=== PATIENT | female | born 1970 | race Caucasian/White ===

== ENCOUNTER 2018-09-20 12:22 | Observation (INO) ==
--- NOTE | 2018-09-20 15:24 | ED ---
HPI General Chief Complaint: Headache Stated Complaint: Headache Time Seen by Provider: 09/20/18 15:01 History of Present Illness HPI Narrative: The patient was seen and examined in the presence of the nurse. This patient complains of yesterday at 10 AM developing a headache. It was a bilateral frontal throbbing headache. It lasted 30 minutes and resolved spontaneously. It did not reoccur. At the same time that she got her headache she developed some weakness of her right arm and right leg. She says that lasted several hours but resolved. It did not recur after that. At this time she feels completely fine but decided to come and get it checked out. She has history of frequent migraines but when she started having menopausal symptoms about 3-4 months ago her migraines stopped. No fever or head injury. At this time symptom severity is mild. No alleviating factors. No exacerbating factors. Related Data Home Medications Medication Instructions Recorded Confirmed metoprolol tartrate 50 mg PO BID 09/20/18 09/20/18 omeprazole 10 mg PO DAILY 09/20/18 09/20/18 prednisone 15 mg PO DAILY 09/20/18 09/20/18 Allergies Allergy/AdvReac Type Severity Reaction Status Date / Time No Known Allergies Allergy Severe Uncoded 03/27/16 15:33 N Allergy Unknown Uncoded 05/13/03 02:23 NKDA Allergy Unknown Uncoded 05/13/03 02:23 Review of Systems ROS: all other systems reviewed are negative [facility] Social History Social History Smoking Status: Never smoker How Often Do You Have a Drink Containing Alcohol: Never Recent Travel in [facility] within the Last 8 Weeks: No Recent Out of Country Travel within the Last 8 Weeks: No Immunization History Tetanus Immunization: Unsure Exam Narrative Exam Narrative: GENERAL: Well-nourished, well-developed patient in no apparent distress. SKIN: Focused skin assessment reveals no rash and nodules. Skin is Warm and dry. HEAD: Atraumatic. Normocephalic. EYES: Pupils equal and round. No scleral icterus. No injection or drainage. ENT: No nasal bleeding or discharge. Mucous membranes pink and moist. NECK: Trachea midline. No JVD. No meningeal signs CARDIOVASCULAR: Regular rate and rhythm. No murmur appreciated. RESPIRATORY: No accessory muscle use. Clear to auscultation. Breath sounds equal bilaterally. GASTROINTESTINAL: Abdomen soft, non-tender, nondistended. Hepatic and splenic margins not palpable. MUSCULOSKELETAL: No obvious deformities. No clubbing. No cyanosis. No edema. NEUROLOGICAL: Awake and alert. No obvious cranial nerve deficits. Motor grossly within normal limits. Normal speech. PSYCHIATRIC: Appropriate mood and affect; insight and judgment normal. Course Initial Documented Vital Signs Temperature 98.9 F 09/20/18 12:36 Pulse Rate 111 H 09/20/18 12:36 Respiratory Rate 20 09/20/18 12:36 Blood Pressure 127/81 09/20/18 12:36 Pulse Oximetry 95 09/20/18 12:36 Last Documented Vital Signs Temperature 98.9 F 09/20/18 12:36 Pulse Rate 99 H 09/20/18 18:01 Respiratory Rate 20 09/20/18 18:01 Blood Pressure 149/89 H 09/20/18 18:01 Pulse Oximetry 98 09/20/18 18:01 Medical Decision Making MDM Narrative Medical decision making narrative: 48-year-old female who yesterday had headache with some right-sided weakness. Both symptoms have resolved and she feels fine today. My initial thought was a typical migraine but I also do not want to miss TIA. I placed a call to our neurologist to discuss and then will initiate a workup plan. Neurologic exam at this time is normal. She has no headache. Takes no blood thinners. No history of stroke or TIA. Has never had neurologic symptoms with her headache. Case reviewed with Dr. Frederick. Brain CT shows potential for old stroke change. Nothing acute. Patient has some nonspecific leukocytosis. Metabolic studies look normal. Neurology recommends 23-hour observation on telemetry for possible TIA. Discussed with hospitalist who will do this. Medical Screen Exam Complete: Yes Emergency Medical Condition: Yes Lab Data Lab results reviewed: Yes I reviewed the patient's lab results. Lab results narrative: Has nonspecific leukocytosis and normal metabolic studies Result diagrams: 09/20/18 15:47 09/20/18 15:47 Lab Results 09/20/18 09/20/18 09/20/18 Range/Units 15:47 15:47 15:47 WBC 15.0 H (4.0-11.0) th/mm3 RBC 4.73 (4.00-5.30) mil/mm3 Hgb 14.5 (11.6-15.3) gm/dL Hct 42.0 (35.0-46.0) % MCV 88.8 (80.0-100.0) fL MCH 30.5 (27.0-34.0) pg MCHC 34.4 (32.0-36.0) % RDW 13.5 (11.6-17.2) % Plt Count 369 (150-450) th/mm3 MPV 7.3 (7.0-11.0) fL Neut % (Auto) 56.5 (16.0-70.0) % Lymph % (Auto) 32.9 (9.0-44.0) % [place] % (Auto) 7.7 (0.0-8.0) % Eos % (Auto) 2.2 (0.0-4.0) % Baso % (Auto) 0.7 (0.0-2.0) % Neut # (Auto) 8.5 H (1.8-7.7) th/mm3 Lymph # (Auto) 4.9 H (1.0-4.8) th/mm3 [place] # (Auto) 1.2 H (0.0-0.9) th/mm3 Eos # (Auto) 0.3 (0.0-0.4) th/mm3 Baso # (Auto) 0.1 (0.0-0.2) th/mm3 WBC Differential . 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 No acute infarct, acute hemorrhage, midline shift or extra-axial fluid collection. 2. 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 . ECG Data EKG Prior to Arrival: No Attestation: I personally reviewed and interpreted this ECG as follows: Prior ECG tracings: not available for review Interpretation: EKG shows sinus rhythm at 96. VT interval is 175 [place] is. [place] is normal. No ectopy or ST elevation. Discharge Plan Discharge Disposition Patient Disposition: ED Admit(ED Internal Use Only) Discharge Details Diagnosis: Brain TIA Physicians Team ED Provider: Martin Antoine Primary Care Provider: UNKNOWN, Rxs /Orders / Referrals /Forms Prescriptions: No Action omeprazole 10 mg Capsule,Delayed Release(Dr/Ec) 10 mg PO DAILY RF: 0 metoprolol tartrate 50 mg Tablet 50 mg PO BID RF: 0 prednisone 15 mg PO DAILY RF: 0 Discharge Interventions Interventions: Vital Signs Last Done: 09/20/18 18:01 Status ED Status: With Doctor
[2018-09-20 15:58] LABS: Baso # (Auto) 0.1 th/mm3 (0.0-0.2); Baso % (Auto) 0.7 % (0.0-2.0); Eos # (Auto) 0.3 th/mm3 (0.0-0.4); Eos % (Auto) 2.2 % (0.0-4.0); Hemoglobin 14.5 gm/dL (11.6-15.3); Lymph # (Auto) 4.9 th/mm3 (1.0-4.8); Lymph % (Auto) 32.9 % (9.0-44.0); Mean Corpuscular HGB Conc 34.4 % (32.0-36.0); Mean Corpuscular Hemoglobin 30.5 pg (27.0-34.0); Mean Corpuscular Volume 88.8 fL (80.0-100.0); Mean Platelet Volume 7.3 fL (7.0-11.0); Mono # (Auto) 1.2 th/mm3 (0.0-0.9); Mono % (Auto) 7.7 % (0.0-8.0); Neut # (Auto) 8.5 th/mm3 (1.8-7.7); Neut % (Auto) 56.5 % (16.0-70.0); Platelet Count 369 th/mm3 (150-450); Red Blood Count 4.73 mil/mm3 (4.00-5.30); Red Cell Distribution Width 13.5 % (11.6-17.2)
--- NOTE | 2018-09-20 16:00 | CT ---
EXAM DATE: 09/20/2018 3:55 PM EST AGE/SEX: 48 years / Female INDICATIONS: Severe headache and ear pain, right sided weakness CLINICAL DATA: This is the patient's initial encounter. Patient reports that signs and symptoms have been present for 1 day and indicates a pain score of 5/10. MEDICAL/SURGICAL HISTORY: Hypertension. None. RADIATION DOSE: 49.25 CTDI (mGy) COMPARISON: No prior exams available for comparison. TECHNIQUE: CT of the head without contrast. Using automated exposure control and adjustment of the mA and/or kV according to patient size, radiation dose was kept as low as reasonably achievable to ob tain optimal diagnostic quality images. DICOM format image data is available electronically for revi ew and comparison. FINDINGS: Cerebrum: The ventricles are normal for age. No evidence of midline shift, mass lesion, hemorrhage or acute infarction. No extraaxial fluid collections are seen. Posterior Fossa: Old infarct is noted involving the left cerebellar hemisphere. The brainstem is inta ct. The 4th ventricle is midline. The cerebellopontine angle is unremarkable. Extracranial: The visualized portion of the orbits is intact. Skull: The calvaria is intact. No evidence of skull fracture. CONCLUSION: 1. No acute infarct, acute hemorrhage, midline shift or extra-axial fluid collection. 2. 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 . Electronically signed by: Clyde Rodriguez MD Board Certified Radiologist 09/20/2018 3:59 PM EST
[2018-09-20 16:04] LABS: Activated Partial Thrombo Time 23.8 sec (23.4-31.7); INR 0.9 Ratio; Prothrombin Time 9.4 sec (9.8-11.6)
[2018-09-20 16:39] LABS: Calcium 8.6 mg/dL (8.5-10.1); Carbon Dioxide 28.8 meq/L (21.0-32.0)
[2018-09-20 16:46] LABS: Potassium 3.9 meq/L (3.5-5.1)
[2018-09-20] MEDS ORDERED: Acetaminophen 325 MG Tablet PO PRN (18:19)
[2018-09-20] MEDS ORDERED: Bisacodyl 10 MG Supp RECTAL PRN (18:19)
--- NOTE | 2018-09-20 18:39 | P.HPIM ---
History of Present Illness Primary Care Physician: UNKNOWN History of Present Illness: 48 yo F with h/o HTN,Asthma, obesity,unexplained tachycardia and migraine who presented to the ER for evaluation of right sided weakness that occurred yesterday but has since resolved. She feels back to her baseline presently. Patient reports that she was doing some cleaning when she developed a suddenly developed a throbbing frontal headache and ear pains which lasted about 30 minutes then resolved. Soon after the headache resolved patient developed right sided weakness and slurred speech which persisted for about six hours then gradually improved. She had no visual symptoms. She feels she is now back to her baseline, but feels she is forgetting things. Patient denies any other symptoms at this time. ROS is negative except as stated above. On presentation to ER, VSS mild tachycardia, mildly hypertensive, other vitals stable. labs unremarkable except for leucocytosis of 15(says she was monitored for possible leukemia in the past but was given a clean bill.)CT head without evidence of acute infarction but there is ab old infarct in the lt cerebellar hemisphere. She received ASA 324mg. Patient is being admitted for observation for possible TIA. Review of Systems Review of Systems: all other systems reviewed are negative [facility] Medical History Medical History Asthma (Acute) HTN (hypertension) (Acute) Migraine (Acute) Tachycardia (Acute) Social History Social History Substance History: No History of Abuse Second Hand Smoke Exposure: No Smoking Status: Former smoker How Often Do You Have a Drink Containing Alcohol: Never Immunization History Tetanus Immunization: Unsure Medications and Allergies Allergies Allergy/AdvReac Type Severity Reaction Status Date / Time No Known Allergies Allergy Severe Uncoded 03/27/16 15:33 N Allergy Unknown Uncoded 05/13/03 02:23 NKDA Allergy Unknown Uncoded 05/13/03 02:23 Home Medications Medication Instructions Recorded Confirmed Type omeprazole 10 mg PO DAILY 09/20/18 09/20/18 History prednisone 15 mg PO DAILY 09/20/18 09/20/18 History Active Medications: Active Medications Acetaminophen (Tylenol) 650 mg PO Q4H PRN PRN Reason: Temp > 100.4 Al Hydroxide/Mg Hydroxide (Milk Of Magnesia Liq) 30 ml PO Q12H PRN PRN Reason: Mild Constipation Bisacodyl (Dulcolax Supp) 10 mg RECTAL DAILY PRN PRN Reason: SEVERE CONSITIPATION Lactulose (Lactulose Liq) 30 ml PO DAILY PRN PRN Reason: SEVERE CONSITIPATION Ondansetron HCl (Zofran Inj) 4 mg IV.PUSH Q6H PRN PRN Reason: NAUSEA OR VOMITING Senna/Docusate Sodium (Nadege-Colace) 1 tab PO BID JIN Sennosides (Senokot) 17.2 mg PO Q12H PRN PRN Reason: Moderate Constipation Sodium Chloride (Ns Flush) 2 ml IV.FLUSH BID JIN Sodium Chloride (Ns Flush) 2 ml IV.FLUSH PRN PRN PRN Reason: FLUSH AFTER USING IV ACCESS Physical Exam Vital signs: Vital Signs 09/20/18 12:36 09/20/18 12:42 09/20/18 18:01 Temperature 98.9 F Pulse Rate 111 H 102 H 99 H Respiratory Rate 20 19 20 Blood Pressure 127/81 165/98 H 149/89 H Pulse Oximetry 95 98 98 Intake & Output 09/19/18 09/20/18 09/20/18 18:59 06:59 18:59 Weight 99.79 kg Narrative: GENERAL: obese middle aged woman in no acute distress. HEENT:not pale,anicteric,ALEJANDRO,no nystagmus CARDIOVASCULAR: Regular rate and rhythm without murmurs, gallops, or rubs. RESPIRATORY: Clear to auscultation. Breath sounds equal bilaterally. No wheezes , rales, or rhonchi. GASTROINTESTINAL: Abdomen soft, non-tender, nondistended. Normal active bowel sounds MUSCULOSKELETAL: Extremities without clubbing, cyanosis, or edema. NEURO: Alert & Oriented x4 to person, place, time, situation. Cranial nerves II -XII intact, muscle strength 5/5, no disdiadokinesia. Gait normal. Results Labs CBC & Chem 7: 09/20/18 15:47 09/20/18 15:[address] 09/20/18 15:30 CONCLUSION: 1. No acute infarct, acute hemorrhage, midline shift or extra-axial fluid collection. 2. 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 . Caprini VTE Risk Assessment Caprini VTE Risk Assessment: No/Low Risk (score <= 1) Caprini Risk Assessment Model: Point Value = 1 Point Value = 2 Point Value = 3 Point Value = 5 Age 41-60 Minor surgery BMI > 25 kg/m2 Swollen legs Varicose veins or History of unexplained or recurrent spontaneous Oral contraceptives or hormone replacement Sepsis (< 1 month) Serious lung disease, including pneumonia (< 1 month) Abnormal pulmonary function Acute myocardial infarction Congestive heart failure (< 1 month) History of inflammatory bowel disease Medical patient at bed rest Age 61-74 Arthroscopic surgery Major open surgery (> 45 min) Laparoscopic surgery (> 45 min) Malignancy Confined to bed (> 72 hours) Immobilizing plaster cast Central venous access Age >= 75 History of VTE Family history of VTE Factor V Leiden Prothrombin [id number] Lupus anticoagulant Anticardiolipin antibodies Elevated serum homocysteine Heparin-induced thrombocytopenia Other congenital or acquired thrombophilia Stroke (< 1 month) Elective arthroplasty Hip, pelvis, or leg fracture Acute spinal cord injury (< 1 month) Prophylaxis Regimen: Total Risk Factor Score Risk Level Prophylaxis Regimen 0-1 Low Early ambulation 2 Moderate Order ONE of the following: *Sequential Compression Device (SCD) *Heparin 5000 units SQ BID 3-4 Higher Order ONE of the following medications: *Heparin 5000 units SQ TID *Enoxaparin/Lovenox 40 mg SQ daily (WT < 150 kg, CrCl > 30 mL/min) *Enoxaparin/Lovenox 30 mg SQ daily (WT < 150 kg, CrCl > 10-29 mL/min) *Enoxaparin/Lovenox 30 mg SQ BID (WT < 150 kg, CrCl > 30 mL/min) AND/OR *Sequential Compression Device (SCD) 5 or more Highest Order ONE of the following medications: *Heparin 5000 units SQ TID (Preferred with Epidurals) *Enoxaparin/Lovenox 40 mg SQ daily (WT < 150 kg, CrCl > 30 mL/min) *Enoxaparin/Lovenox 30 mg SQ daily (WT < 150 kg, CrCl > 10-29 mL/min) *Enoxaparin/Lovenox 30 mg SQ BID (WT < 150 kg, CrCl > 30 mL/min) AND *Sequential Compression Device (SCD) Assessment and Plan Plan 48 yo F with h/o HTN,Asthma, obesity,unexplained tachycardia and migraine who presented to the ER for evaluation of right sided weakness that occurred yesterday but has since resolved. Resolved right sided weakness and slurred speech-- differentials include TIA vs hemiplegic migraine. Patient has risk factors for stroke. keep on telemetry, check lipid profile,A1C,ECHO. MRI/MRA brain Start on daily Aspirin 81mg HTN--BP mildly elevated, monitor for now. Tachycardia-continue usual dose of Metoprolol Asthma-not in exacerbation. continue usual Prednisone and Albuterol inhaler.
--- NOTE | 2018-09-20 21:20 | US ---
EXAM DATE: 09/20/2018 9:13 PM EST AGE/SEX: 48 years / Female INDICATIONS: Syncope and head pain. CLINICAL DATA: This is the patient's initial encounter. Patient reports that signs and symptoms have been present for 1 day and indicates a pain score of 6/10. MEDICAL/SURGICAL HISTORY: Hypertension. Migraine. Tachycardia. None. COMPARISON: No prior exams available for comparison. VELOCITY PARAMETERS: ICA/CCA Ratio: Right 0.7 , Left 1.0 ICA: Right 61 cm/sec, Left 67 cm/sec CCA: Right 90 cm/sec, Left 66 cm/sec ECA: Right 81 cm/sec, Left 86 cm/sec Vertebral: Right 34 cm/sec antegrade, Left 26 cm/sec antegrade FINDINGS: Right Carotid: No significant plaque is visualized.The waveforms are within normal limits. Left Carotid: No significant plaque is visualized. The waveforms are within normal limits. Other: None. CONCLUSION: 1. Right Internal Carotid Artery: No significant stenosis or atherosclerotic plaque is visualized. 2. Left Internal Carotid Artery: No significant stenosis or atherosclerotic plaque is visualized. Electronically signed by: William Krishnan MD Board Certified Radiologist 09/20/2018 9:19 PM EST
--- NOTE | 2018-09-20 21:42 | MR ---
EXAM DATE: 09/20/2018 9:38 PM EST AGE/SEX: 48 years / Female INDICATIONS: CVA. Headache yesterday with weakness today. CLINICAL DATA: This is the patient's initial encounter. Patient reports that signs and symptoms have been present for 2 days and indicates a pain score of 6/10. MEDICAL/SURGICAL HISTORY: Hypertension. section. Knee sx. COMPARISON: [facility] [place], MR HEAD W/O CONTRAST, 09/20/2018. . TECHNIQUE: 3D [id number] MRA was performed. Source images, multiplanar STS MIP, and 3D volum e MIP reconstructions were reviewed. FINDINGS: There is excellent visualization of the major intracranial arteries out to the second-order branch ve ssels. There is no evidence for aneurysm, vessel truncation or stenosis, and no evidence for vascula r malformation. CONCLUSION: 1. Negative MRA [place] ([place] [facility] [place]) non contrast. Electronically signed by: William Krishnan MD Board Certified Radiologist 09/20/2018 9:41 PM EST
--- NOTE | 2018-09-20 21:43 | MR ---
EXAM DATE: 09/20/2018 9:38 PM EST AGE/SEX: 48 years / Female INDICATIONS: CVA. Headache and weakness yesterday. CLINICAL DATA: This is the patient's initial encounter. Patient reports that signs and symptoms have been present for 2 days and indicates a pain score of 6/10. MEDICAL/SURGICAL HISTORY: Hypertension. section. Knee sx. COMPARISON: [facility], MRA HEAD W/O CONTRAST, 09/20/2018. . TECHNIQUE: Multiplanar, multisequence examination of the brain was performed without contrast. FINDINGS: There are remote left cerebellar infarcts identified. There are no signs of acute infarction on diffu lizbet-weighted images. CSF spaces, ventricles and cisterns are of normal size and configuration. No he morrhage or mass. CONCLUSION: 1. Remote left cerebellar infarcts. Electronically signed by: William Krishnan MD Board Certified Radiologist 09/20/2018 9:42 PM EST
[2018-09-20] MEDS: Senna/Docusate Sodium 8.6/50 MG Tablet PO SCH (21:52)
[2018-09-20] MEDS: Metoprolol Tartrate 50 MG Tablet PO SCH (21:52)
[2018-09-20 22:38] LABS: Hemoglobin A1c 6.2 % (4.3-6.0)
[2018-09-21 07:58] LABS: Chol/HDL Ratio 2.92 Ratio; HDL Cholesterol 75.8 mg/dL (40.0-60.0)
[2018-09-21] MEDS: Pantoprazole Sodium 20 MG DR Tablet PO SCH (08:41)
[2018-09-21] MEDS: predniSONE 5 MG Tablet PO SCH (08:41)
[2018-09-21] MEDS: Metoprolol Tartrate 50 MG Tablet PO SCH ×2 (08:42→21:22)
[2018-09-21] MEDS: Senna/Docusate Sodium 8.6/50 MG Tablet PO SCH ×2 (08:42→21:23)
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
[2018-09-21] MEDS: Butalbital/APAP/Caff 50/325/40 MG Tablet PO PRN (10:56)
[2018-09-21] MEDS: Lisinopril 5 MG Tablet PO SCH (10:57)
--- NOTE | 2018-09-21 12:38 | P.CONCA ---
History of Present Illness Service: Cardiology Consult date: 09/21/18 Requesting Physician: Jayesh Frederick Reason for Consult: SE Primary Care Provider: UNKNOWN Chief Complaint: Headache weakness History of Present Illness: This is a very pleasant 48-year-old female with past medical history of hypertension, asthma, obesity, unexplained tachycardia and migraines. On September 19, 2018 she developed right-sided weakness and decided to seek further evaluation in the emergency department. During the episode of right-sided weakness, she denied any chest pain, pressure, palpitations, dizziness or edema. She did complain of ongoing shortness of breath related to her asthma. Upon evaluation today, all symptoms have resolved and she denies any chest pain , pressure, palpitations, dizziness, edema or shortness of breath. Review of Systems All other systems reviewed negative except as stated in HPI PMF - History History Provided By: Patient - Medical History Medical History: Medical History (Last Updated 09/20/18 @ 18:33 by Anam Roca MD) Asthma HTN (hypertension) Migraine Tachycardia - Family History Family History: Family History (Last Reviewed 09/20/18 @ 15:22 by Martin Antoine MD) Grandparent Stroke Heart disease Father Heart disease - Tobacco History Second Hand Smoke Exposure: No Tobacco Use In Past 30 Days: No Smoking Status: Former smoker - Alcohol History How Often Do You Have a Drink Containing Alcohol: Never - Substance Use History Substance History: No History of Abuse - Travel History Recent Travel in the [place] Within the Last 8 Weeks: No Recent Travel Out of the Country Within the Last 8 Weeks: No - Immunization History Tetanus Immunization: Unsure Medications and Allergies Allergies Allergy/AdvReac Type Severity Reaction Status Date / Time No Known Allergies Allergy Severe Uncoded 03/27/16 15:33 N Allergy Unknown Uncoded 05/13/03 02:23 NKDA Allergy Unknown Uncoded 05/13/03 02:23 Home Medications Medication Instructions Recorded Confirmed Type metoprolol tartrate 50 mg PO BID 09/20/18 09/20/18 History omeprazole 10 mg PO DAILY 09/20/18 09/20/18 History prednisone 15 mg PO DAILY 09/20/18 09/20/18 History Active Medications: Active Medications Acetaminophen (Tylenol) 650 mg PO Q4H PRN PRN Reason: Temp > 100.4 Acetaminophen/Butalbital/Caffeine (Fioricet 50-325-40) 1 tab PO Q8H PRN PRN Reason: HEADACHE Last Admin: 09/21/18 10:56 Dose: 1 tab Al Hydroxide/Mg Hydroxide (Milk Of Magnesia Liq) 30 ml PO Q12H PRN PRN Reason: Mild Constipation Aspirin (Ecotrin) 81 mg PO DAILY [facility] Last Admin: 09/21/18 08:41 Dose: 81 mg Bisacodyl (Dulcolax Supp) 10 mg RECTAL DAILY PRN PRN Reason: SEVERE CONSITIPATION Lactulose (Lactulose Liq) 30 ml PO DAILY PRN PRN Reason: SEVERE CONSITIPATION Lisinopril (Prinivil) 5 mg PO DAILY [facility] Last Admin: 09/21/18 10:57 Dose: 5 mg Metoprolol Tartrate (Lopressor) 50 mg PO BID [facility] Last Admin: 09/21/18 08:42 Dose: 50 mg Ondansetron HCl (Zofran Inj) 4 mg IV.PUSH Q6H PRN PRN Reason: NAUSEA OR VOMITING Pantoprazole Sodium (Protonix) 20 mg PO DAILY [facility] Last Admin: 09/21/18 08:41 Dose: 20 mg Prednisone (Deltasone) 15 mg PO DAILY [facility] Last Admin: 09/21/18 08:41 Dose: 15 mg Senna/Docusate Sodium (Nadege-Colace) 1 tab PO BID [facility] Last Admin: 09/21/18 08:42 Dose: Not Given Sennosides (Senokot) 17.2 mg PO Q12H PRN PRN Reason: Moderate Constipation Sodium Chloride (Ns Flush) 2 ml IV.FLUSH BID [facility] Last Admin: 09/21/18 08:41 Dose: 2 ml Sodium Chloride (Ns Flush) 2 ml IV.FLUSH PRN PRN PRN Reason: FLUSH AFTER USING IV ACCESS Exam Vital signs: Vital Signs 09/20/18 12:36 09/20/18 12:42 09/20/18 18:01 Temperature 98.9 F Pulse Rate 111 H 102 H 99 H Respiratory Rate 20 19 20 Blood Pressure 127/81 165/98 H 149/89 H Pulse Oximetry 95 98 98 09/20/18 19:46 09/20/18 20:00 09/20/18 23:40 Temperature 97.8 F 97.8 F Pulse Rate 92 H 86 79 Respiratory Rate 16 20 18 Blood Pressure 160/79 H 110/61 113/61 Pulse Oximetry 96 93 L 96 09/21/18 02:00 09/21/18 03:27 09/21/18 08:00 Temperature 97.6 F 97.4 F L Pulse Rate 73 79 88 Respiratory Rate 18 18 Blood Pressure 110/63 132/79 Pulse Oximetry 93 L 92 L 09/21/18 11:43 Temperature 96.6 F L Pulse Rate 75 Respiratory Rate 18 Blood Pressure 126/86 Pulse Oximetry 95 Intake & Output 09/20/18 09/21/18 09/21/18 18:59 06:59 18:59 Weight 99.79 kg Other: Date of Last Bowel Movement 09/20/18 09/21/18 - Constitutional no acute distress - Routine HEENT Exam Head: Present: normocephalic Eye: Present: PERRL ENT: Present: mucous membranes moist - Routine Neck Exam Present: full ROM - Routine Respiratory Exam Present: CTA bilaterally - Routine Cardiovascular Exam Present: S1, S2. Absent: murmur, gallop, rubs - Routine Abdominal Exam Present: normoactive bowel sounds - Routine Extremities Exam Present: full ROM, pulses intact, normal capillary refill. Absent: cyanosis, clubbing, edema - Routine Skin Exam Present: intact - Routine Neurological Exam Present: oriented X3 Results 09/20/18 15:47 09/20/18 15:47 Coagulation 09/20/18 Range/Units 15:47 PT 9.4 L (9.8-11.6) sec APTT 23.8 (23.4-31.7) sec Lipids 09/21/18 Range/Units 07:21 Triglycerides 91 (42-150) mg/dL Cholesterol 222 H (120-200) mg/dL HDL Cholesterol 75.8 H (40.0-60.0) mg/dL Cholesterol/HDL Ratio 2.92 Ratio CBC 09/20/18 Range/Units 15:47 WBC 15.0 H (4.0-11.0) th/mm3 RBC 4.73 (4.00-5.30) mil/mm3 Hgb 14.5 (11.6-15.3) gm/dL Hct 42.0 (35.0-46.0) % Plt Count 369 (150-450) th/mm3 Neut # (Auto) 8.5 H (1.8-7.7) th/mm3 Lymph # (Auto) 4.9 H (1.0-4.8) th/mm3 [place] # (Auto) 1.2 H (0.0-0.9) th/mm3 Eos # (Auto) 0.3 (0.0-0.4) th/mm3 Baso # (Auto) 0.1 (0.0-0.2) th/mm3 Comprehensive Metabolic Panel 09/20/18 Range/Units 15:47 Sodium 142 (136-145) meq/L Potassium 3.9 (3.5-5.1) meq/L Chloride 105 (98-107) meq/L Carbon Dioxide 28.8 (21.0-32.0) meq/L BUN 19 H (7-18) mg/dL Creatinine 0.99 (0.50-1.00) mg/dL Calcium 8.6 (8.5-10.1) mg/dL Intake and Output 09/20/18 09/21/18 09/21/18 22:59 06:59 14:59 Other: Date of Last Bowel Movement 09/20/18 09/21/18 - Imaging and Cardiology Imaging: Impressions Carotid Doppler Study 09/20/18 00:00 CONCLUSION: 1. Right Internal Carotid Artery: No significant stenosis or atherosclerotic plaque is visualized. 2. Left Internal Carotid Artery: No significant stenosis or atherosclerotic plaque is visualized. Head MRI 09/20/18 00:00 CONCLUSION: 1. Remote left cerebellar infarcts. Head MRA 09/20/18 00:00 CONCLUSION: 1. Negative MRA Cow ([place]) non contrast. Head CT 09/20/18 15:30 CONCLUSION: 1. No acute infarct, acute hemorrhage, midline shift or extra-axial fluid collection. 2. 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 . Assessment and Plan - Assessment (1) Brain TIA Code(s): G45.9 - Transient cerebral ischemic attack, unspecified Status: Acute (2) Migraine Code(s): G43.909 - Migraine, unspecified, not intractable, without status migrainosus Status: Acute (3) Obesity Code(s): E66.9 - Obesity, unspecified Status: Acute (4) Asthma Code(s): J45.909 - Unspecified asthma, uncomplicated Status: Acute (5) Hypertension Code(s): I10 - Essential (primary) hypertension Status: Acute (6) Hyperlipidemia Code(s): E78.5 - Hyperlipidemia, unspecified Status: Acute - Plan EKG shows no acute coronary syndrome at this time. We will proceed with transesophageal echocardiogram this evening to evaluate for cardiac source of emboli and PFO. Keep patient n.p.o. except medications. Have consent signed for transesophageal echocardiogram, placed on chart. We will continue to monitor patient during hospitalization. The patient was seen and evaluated by Dr. Reis who participated in care, management and decision making. - Attending Attestation Patient seen and examined. I reviewed and agree with the evaluation and plan as presented. Neurology evaluation in progress. Proceed with SE today.
--- NOTE | 2018-09-21 14:36 | ECG ---
Date Performed: 09/20/2018 Time Performed: 16:17:04 PTAGE: 48 years EKG: Sinus rhythm NORMAL ECG NO PREVIOUS TRACING DOCTOR: Dante Erickson Interpretating Date/Time 09/21/2018 14:34:32
[2018-09-21] MEDS ORDERED: Metoprolol Tartrate 25 MG Tablet PO SCH (14:55)
[2018-09-21] MEDS ORDERED: Chlorhexidine Gluconate 2% 1 Pack (2 Cloths) TOPICAL ONE (14:55)
[2018-09-21] MEDS ORDERED: Sodium Chlor 0.9% Inj 500 ML IV.SIG SCH (15:00)
[2018-09-21] MEDS ORDERED: Famotidine PF Inj 20 MG/2 ML Vial ONE (16:12)
[2018-09-21] MEDS ORDERED: Lidocaine PF 1% Inj 5 ML Syringe OTHER ONE (17:30)
[2018-09-21] MEDS ORDERED: Glycopyrrolate Inj 1 MG/5 ML Syringe IV.PUSH ONE (17:30)
[2018-09-21] MEDS ORDERED: Succinylcholine Inj 100 MG/5 ML Syringe IV.PUSH ONE (17:30)
--- NOTE | 2018-09-21 17:47 | ECHRPT ---
Indication: CVA/TIA CONCLUSIONS Normal left ventricular size. The left ventricular systolic function is normal with an estimated ejection fraction in the range of 60-65%. Wall thickness is normal. There is trace tricuspid valve regurgitation. The estimated pulmonary arterial pressure is 32 mmHg. BP: / HR: Rhythm: MEASUREMENTS (Male / Female) Normal Values Technical Quality:Fair 2D ECHO LV Diastolic Diameter PLAX 4.2 cm 4.2 - 5.9 / 3.9 - 5.3 cm LV Systolic Diameter PLAX 2.8 cm IVS Diastolic Thickness 0.9 cm 0.6 - 1.0 / 0.6 - 0.9 cm LVPW Diastolic Thickness 0.9 cm 0.6 - 1.0 / 0.6 - 0.9 cm LV Relative Wall Thickness 0.4 RV Internal Dim ED PLAX 2.8 cm LVOT Diameter 2.1 cm Aortic Root Diameter 2.7 cm LA Systolic Diameter LX 2.5 cm 3.0 - 4.0 / 2.7 - 3.8 cm M-MODE AV Cusp Separation MM 1.9 cm DOPPLER AV Peak Velocity 124.0 cm/s AV Peak Gradient 6.2 mmHg LVOT Peak Velocity 85.4 cm/s LVOT Peak Gradient 2.9 mmHg AV Area Cont Eq pk 2.4 cm Mitral E Point Velocity 93.7 cm/s Mitral A Point Velocity 85.5 cm/s Mitral E to A Ratio 1.1 LV E' Lateral Velocity 7.7 cm/s Mitral E to LV E' Lateral Ratio 12.2 LV E' Septal Velocity 9.7 cm/s Mitral E to LV E' Septal Ratio 9.7 TR Peak Velocity 235.0 cm/s TR Peak Gradient 22.1 mmHg Right Atrial Pressure 10.0 mmHg Pulmonary Artery Systolic Pressu 32.1 mmHg Right Ventricular Systolic Press 32.1 mmHg PV Peak Velocity 113.0 cm/s PV Peak Gradient 5.1 mmHg FINDINGS LEFT VENTRICLE Normal left ventricular size. Wall thickness is normal. The left ventricular systolic function is normal with an estimated ejection fraction in the range of 60-65%. RIGHT VENTRICLE Normal right ventricular size and systolic function. LEFT ATRIUM The left atrial size is normal. RIGHT ATRIUM The right atrial size is normal. ATRIAL SEPTUM Normal atrial septal thickness without atrial level shunting by limited color doppler interrogation. AORTA The aortic root and proximal ascending aorta are normal in size on limited imaging. MITRAL VALVE Structurally normal mitral valve. No mitral valve stenosis or regurgitation. AORTIC VALVE Trileaflet aortic valve. No aortic valve stenosis or regurgitation. TRICUSPID VALVE There is trace tricuspid valve regurgitation. The estimated pulmonary arterial pressure is 32 mmHg. PULMONARY VALVE Trivial pulmonary valve regurgitation. VESSELS The inferior vena cava is normal in size. PERICARDIUM No pericardial effusion. Brian Reis MD, FACC (Electronically Signed) Final Date:21 September 2018 17:46
[2018-09-21] MEDS ORDERED: *morphine SULFATE 4 MG/ML PERIprocedure ONLY ONE (17:59)
--- NOTE | 2018-09-21 20:13 | CF ---
cc: Brian Reis MD DATE: 09/21/2018 INDICATION: TIA, migraine headache, evaluation for cardiac source of emboli and PFO. PROCEDURE PERFORMED: Transesophageal echocardiogram. DESCRIPTION OF PROCEDURE: After the patient was sedated by anesthesia, transesophageal probe was placed without difficulties. Tomographic images were obtained. Left atrial appendage was visualized, and there was no evidence of left atrial thrombus. Mitral valve was structurally normal. There was no evidence of mitral stenosis or regurgitation. Aortic valve was structurally normal. There was no evidence of aortic stenosis or regurgitation. There was evidence of trace tricuspid regurgitation. There was evidence of trace pulmonary insufficiency. Left ventricular function was preserved with an ejection fraction of 60% with no wall motion abnormalities. Bubble study was performed, and there was no evidence of [id number] shunt. Descending thoracic aorta had no significant plaque DIAGNOSES: 1. No evidence of left atrial thrombus. 2. No evidence of patent foramen ovale. 3. Preserved left ventricular systolic function. 4. Trace tricuspid regurgitation. IMPRESSION: No evidence of cardiac source of emboli. Brian Reis MD OQ/rm , 05:44 PM , 05:51 PM MTDD
[2018-09-22] MEDS: Butalbital/APAP/Caff 50/325/40 MG Tablet PO PRN (03:24)
[2018-09-22 08:03] VITALS: BP 117/66; PULSE 89; RESP 16; TEMP 97.3; O2SAT 94
--- NOTE | 2018-09-22 08:17 | MR ---
EXAM DATE: 09/22/2018 7:54 AM EST AGE/SEX: 48 years / Female INDICATIONS: Weakness. Cephalgia. CLINICAL DATA: This is the patient's initial encounter. Patient reports that signs and symptoms have been present for 2 days and indicates a pain score of 0/10. MEDICAL/SURGICAL HISTORY: Stroke. section. COMPARISON: No prior exams available for comparison. TECHNIQUE: Multiplanar, multisequence MRI examination of the cervical spine was performed without co ntrast. FINDINGS: Vertebrae: Normal vertebral body height. Homogeneous marrow signal. Alignment: Normal. Cord: Normal configuration and signal. Post Fossa: The cerebellar tonsils are normal in position. C2-C3: The disc is within normal limits. Very mild bilateral facet osteoarthritis. No foraminal or s rose stenosis. C3-C4: The disc is within normal limits. Mild bilateral uncovertebral and facet osteoarthritis. No s ignificant foraminal or spinal stenosis. C4-C5: The disc is within normal limits. Mild bilateral uncovertebral and facet osteoarthritis. No s ignificant foraminal or spinal stenosis. C5-C6: The disc is desiccated and has mild to moderate loss of height. Mild bilateral uncovertebral and facet osteoarthritis. There is a small, broad chronic appearing posterior disc protrusion. A supe rimposed focal and left age indeterminate protrusion is seen in the left foramen and probably impingi ng on the exiting left C6 nerve root. There is mild to moderate narrowing of the right foramen. Sligh t effacement of the anterior aspect of the thecal sac without cord compression or cord signal abnorma lity. C6-C7: The disc is normal. There is mild bilateral facet osteoarthritis. No foraminal or spinal sten osis. C7-T1: The disc is normal. There is mild bilateral facet osteoarthritis. No foraminal or spinal sten osis. CONCLUSION: 1. Intact cervical spine. 2. Degenerative changes as above, most pronounced at C5/C6 where there is left greater than right fo raminal stenosis. Electronically signed by: Jose Sy MD Board Certified Radiologist 09/22/2018 8:16 AM EST
[2018-09-22] MEDS: predniSONE 5 MG Tablet PO SCH (08:29)
[2018-09-22] MEDS: Metoprolol Tartrate 50 MG Tablet PO SCH (08:31)
[2018-09-22] MEDS: Senna/Docusate Sodium 8.6/50 MG Tablet PO SCH (08:31)
[2018-09-22] MEDS: Pantoprazole Sodium 20 MG DR Tablet PO SCH (08:32)
[2018-09-22] MEDS: Lisinopril 5 MG Tablet PO SCH (08:32)
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
[2018-09-22] MEDS ORDERED: Influenza (Quadrivalent) Vaccine 0.5 ML Syringe IM ONE (09:31)
== END 2018-09-22 11:02 | disposition home or self-care (01) ==
LOC: NEDA 12:22 → NEPC 12:22 → NEDA 19:45 → NEPHCDU 19:53
PROVIDERS: ADMIT Hospitalist; ATTEND Hospitalist
DX: Z87.891 Personal history of nicotine dependence; I10 Essential (primary) hypertension; G43.409 Hemiplegic migraine, not intractable, without status migrainosus; E66.9 Obesity, unspecified; D72.829 Elevated white blood cell count, unspecified; Z68.39 Body mass index [BMI] 39.0-39.9, adult; R73.03 Prediabetes; Z91.14 Patient's other noncompliance with medication regimen; R25.1 Tremor, unspecified; Z23 Encounter for immunization; M48.00 Spinal stenosis, site unspecified; Z86.73 Personal history of transient ischemic attack (TIA), and cerebral infarction without residual deficits; J45.909 Unspecified asthma, uncomplicated; Z79.82 Long term (current) use of aspirin; E78.5 Hyperlipidemia, unspecified
CPT/HCPCS: 70450; 70544; 70551; 72141; 80048; 80061; 83036; 84443; 84703; 85025; 85610; 85730; 90471; 90658; 90686; 93005; 93306; 93312; 93320; 93325; 93880; 99285; G0008; G0378; J0330; J2270; J2704; J7506; J7512; Q2038